=== PATIENT | male | born 1950 | race Caucasian/White ===

== ENCOUNTER 2016-04-16 15:45 | Emergency (ER) | payer OTHER ==
[~2016-04-16] VITALS: Ht 157.5 cm; Wt 93.0 kg
[~2016-04-16 15:45] MED LIST: ACTOPLUS MET1 TABLET PO; ADVAIR 250/501 DISK IH; ALBUTEROL SULF8.5 GM IH; ALBUTEROL2.5 MG/3 M IH; AMIODARONE HCL200 MG PO; ASPIR 8181 MG PO; ASPIR-TRIN325 M1 PO; ASPIRIN E.C.81 M1 PO; ASPIRIN EC325 MG PO; ASPIRIN325 MG PO; Advair HFA 115/21 IH; Aldactone PO; BACLOFEN10 MG PO; BACLOFEN20 MG PO; BISAC-EVAC10 MG PR; CARVEDILOL3.125 MG PO; CARVEDILOL6.25 MG PO; Cordarone, Pacerone PO; Coreg PO; DARVOCET A5001 EACH PO; DELTASONE10 MG PO; ENABLEX15 MG PO; FLEET ENEMA-AD118 ML PR; FLOMAX0.4 M1 PO; FLOMAX0.4 MG PO; FUROSEMIDE20 MG PO; FUROSEMIDE40 MG PO; Flomax PO; GLUCOPHAGE500 MG PO; HEPARIN SO5000 UNITS SC; IBUPROFEN400 MG PO; K-DUR20 MEQ PO; KLOR-CON 1010 ME1 PO; KLOR-CON M2020 MEQ PO; LASIX40 MG PO; LEVAQUIN500 MG PO; LEVAQUIN750 MG PO; LIORESAL5 MG PO; LIPITOR40 MG PO; LIPITOR5 MG PO; LISINOPRIL5 MG PO; LOVENOX40 MG/0.4 SC; Lasix PO; METFORMIN HCL500 MG PO; MILK OF MAGN PO; OMEPRAZOLE20 MG PO; PACERONE200 M1 PO; PIOGLITAZONE-M1 EACH PO; PRILOSEC20 MG PO; PRINIVIL10 MG PO; PRINIVIL5 MG PO; PROMETHAZINE HC25 M1 PO; PROTONIX20 MG PO; PROTONIX40 MG PO; PROVENTIL2.5 MG/3 M IH; Proventil,Ventolin H IH; QUETIAPINE FUMA25 MG PO; SEROQUEL12.5 MG PO; SIMVASTATIN40 MG PO; SPIRIVA1 INHALATI IH; STOOL SOFT-STI1 EACH PO; TAMSULOSIN HCL0.4 MG PO; TRAMADOL HCL50 MG PO; ZITHROMAX250 MG PO; Zestril,Prinivil PO; predniSONE PO
[2016-04-16 16:32] LABS: POINT-OF-CARE METER ID UU13113702; POINT-OF-CARE USER ID LABGLH01
[2016-04-16 17:07] LABS: EOSINOPHIL (%) 0 % (0-5); HEMATOCRIT 41.7 % (38.0-50.0); IMMATURE GRANULOCYTE (%) 0.1 % (0.0-0.7); IMMATURE GRANULOCYTE COUNT 0.1 K/uL; LYMPHOCYTE COUNT 1.5 K/uL (1.0-2.8); MCH 30.5 PG (29.0-34.0); MCHC 32.9 G/DL (30.0-36.0); MCV 92.9 FL (86-99); MEAN PLAT.VOLUME 9.6 uM^3 (9.0-12.4); MONOCYTE (%) 9.2 % (3-12); MONOCYTE COUNT 0.7 K/uL (0-0.8); NEUTROPHIL (%) 71.4 % (45-76); NEUTROPHIL COUNT 5.7 K/uL (1.8-6.4); PLATELET COUNT 136 K/uL (156-360); RED BLOOD COUNT 4.49 M/uL (4.00-5.50); WHITE BLOOD COUNT 7.9 K/uL (4.1-10.2)
[2016-04-16 17:19] LABS: CHLORIDE 108 mEq/L (99-109); POTASSIUM 4.8 mEq/L (3.7-5.4); SODIUM 142 mEq/L (136-147)
[2016-04-16 17:21] LABS: GLUCOSE 124 mg/dL (70-99)
[2016-04-16 17:22] LABS: ANION GAP 8 MEQ/L (2-14)
[2016-04-16 17:23] LABS: TOTAL BILIRUBIN 0.5 mg/dL (0.0-1.0)
[2016-04-16 17:25] LABS: ALKALINE PHOSPHATASE 74 IU/L (3-129); GFR ESTIMATE (CALCULATED) 40 mL/min/
[2016-04-16 17:26] LABS: UREA NITROGEN (BUN) 33 mg/dL (9-23)
[2016-04-16 17:33] LABS: TROP-I INTERPRETATION NEGATIVE; TROPONIN-I 0.05 ng/mL (0.0-0.30)
[2016-04-16] MEDS ORDERED: ZESTRIL5 MG PO (17:55)
[2016-04-16] MEDS ORDERED: LASIX40 MG PO (17:56)
[2016-04-16] MEDS ORDERED: ATROVENT H200 INHALA IH (17:59)
[2016-04-16] MEDS ORDERED: SENNA PLUS TAB1 EACH PO (18:02)
[2016-04-16] MEDS ORDERED: MILK OF MAGN PO (18:04)
[2016-04-16] MEDS ORDERED: DULCOLAX10 MG PR (18:05)
[2016-04-16] MEDS ORDERED: FLEET ENEMA-AD118 ML PR (18:05)
[2016-04-16 21:40] VITALS: BP 149/69
== END 2016-04-16 21:41 ==
LOC: EME → EDBD 15:45 → EME 15:45
PROVIDERS: Emergency Medicine
DX: M62.81 Muscle weakness (generalized) (principal); J44.9 Chronic obstructive pulmonary disease, unspecified; J43.9 Emphysema, unspecified; I10 Essential (primary) hypertension; E11.9 Type 2 diabetes mellitus without complications; Z87.891 Personal history of nicotine dependence; Z91.040 Latex allergy status; Z88.6 Allergy status to analgesic agent
CPT/HCPCS: 70450; 71010; 80053; 81003; 82948; 83605; 84484; 85025; 93005; 99281; 99285; J7040

== ENCOUNTER 2016-12-02 23:06 | Emergency (ER) | payer OTHER ==
[~2016-12-02] VITALS: Ht 154.9 cm; Wt 55.5 kg
[~2016-12-02 23:06] MED LIST changes: +ATROVENT H200 INHALA IH; +DULCOLAX10 MG PR; +SENNA PLUS TAB1 EACH PO; +ZESTRIL5 MG PO
[2016-12-03 01:00] LABS: EOSINOPHIL (%) 0 % (0-5); HEMATOCRIT 30.6 % (38.0-50.0); IMMATURE GRANULOCYTE (%) 0.2 % (0.0-0.7); INSTRUMENT ABS NEUTROPHIL CT 2.8 K/uL; MCHC 32.4 G/DL (30.0-36.0); MCV 92.7 FL (86-99); MEAN PLAT.VOLUME 10.6 uM^3 (9.0-12.4); MONOCYTE (%) 15.8 % (3-12); MONOCYTE COUNT 0.9 K/uL (0-0.8); NEUTROPHIL (%) 49.3 % (45-76); NEUTROPHIL COUNT 2.8 K/uL (1.8-6.4); PLATELET COUNT 102 K/uL (156-360); RBC DIS.WIDTH-CV 14.2 % (11.8-14.6); RBC DIS.WIDTH-SD 48.3 % (39-53); WHITE BLOOD COUNT 5.8 K/uL (4.1-10.2)
[2016-12-03 01:05] LABS: INTER. NORMALIZED RATIO 1.1; PROTHROMBIN TIME 12.6 SEC (10.2-12.9)
[2016-12-03 01:08] LABS: PTT 40.5 SEC (25-37)
[2016-12-03 01:15] LABS: CHLORIDE 106 mEq/L (99-109); POTASSIUM 3.7 mEq/L (3.7-5.4); SODIUM 140 mEq/L (136-147)
[2016-12-03 01:16] LABS: GLUCOSE 109 mg/dL (70-99)
[2016-12-03 01:18] LABS: ANION GAP 10 MEQ/L (2-14)
[2016-12-03 01:20] LABS: GFR ESTIMATE (CALCULATED) 43 mL/min/
[2016-12-03 01:21] LABS: UREA NITROGEN (BUN) 41 mg/dL (9-23)
[2016-12-03] MEDS ORDERED: LEVAQUIN500 MG PO (02:03)
[2016-12-03 03:23] VITALS: BP 125/58
== END 2016-12-03 03:25 ==
LOC: EME 23:06
PROVIDERS: Emergency Medicine
PROC: 2W39X1Z Immobilization of Left Upper Extremity using Splint (ICD-10-PCS; principal; 2016-12-03)
DX: S42.202A Unspecified fracture of upper end of left humerus, initial encounter for closed fracture (principal); J44.0 Chronic obstructive pulmonary disease with (acute) lower respiratory infection; J18.9 Pneumonia, unspecified organism; S00.93XA Contusion of unspecified part of head, initial encounter; W05.0XXA Fall from non-moving wheelchair, initial encounter; Y92.129 Unspecified place in nursing home as the place of occurrence of the external cause; I69.854 Hemiplegia and hemiparesis following other cerebrovascular disease affecting left non-dominant side; I11.0 Hypertensive heart disease with heart failure; I50.9 Heart failure, unspecified; Z87.442 Personal history of urinary calculi; Z88.6 Allergy status to analgesic agent; Z91.040 Latex allergy status; F17.200 Nicotine dependence, unspecified, uncomplicated
CPT/HCPCS: 70450; 71020; 73030; 73060; 73070; 80048; 85025; 85610; 85730; 94640; 99281; 99284; J3010